=== PATIENT | male | born 1945 | race African-American/Black ===

== ENCOUNTER 2016-04-02 17:38 | Emergency (ER) | payer MEDICARE, OTHER ==
[2016-04-02] MEDS ORDERED: ASPIRIN 81 MG CHEW TAB ONE (17:54)
== END 2016-04-02 22:11 | disposition home or self-care (01) ==
LOC: ER 17:38
DX: I25.119 Atherosclerotic heart disease of native coronary artery with unspecified angina pectoris (principal); I11.0 Hypertensive heart disease with heart failure; I50.9 Heart failure, unspecified; E11.9 Type 2 diabetes mellitus without complications; I25.2 Old myocardial infarction; Z95.5 Presence of coronary angioplasty implant and graft; N19 Unspecified kidney failure; J44.9 Chronic obstructive pulmonary disease, unspecified; Z79.02 Long term (current) use of antithrombotics/antiplatelets; Z79.82 Long term (current) use of aspirin; Z86.718 Personal history of other venous thrombosis and embolism; F17.210 Nicotine dependence, cigarettes, uncomplicated
CPT/HCPCS: 36415; 71010; 80053; 82550; 83735; 84484; 85025; 85610; 85730; 93005